=== PATIENT | male | born 1975 | race Caucasian/White ===

== ENCOUNTER 2021-08-21 18:27 | Emergency (ER) | payer SELFPAY ==
[2021-08-21 18:45] VITALS: BP 173/84; PULSE 74; RESP 16; TEMP 36.8; O2SAT 99; BMI 28.4
--- NOTE | 2021-08-21 19:03 | W.ED.URI ---
HPI - URI/Sore Throat General: Chief Complaint: Upper Respiratory Infection Stated Complaint: Throat Hurts Time Seen by Provider: 08/21/21 18:55 Source: patient Mode of arrival: ambulatory Limitations: no limitations History of Present Illness: HPI Narrative: Patient is a 46-year-old male presents to ED today with complaint of a sore throat and a productive cough over the past 2 to 3 days. Patient is primarily Telugu-speaking and has a friend/customer quality specialist on his phone that most of the history was elicited from. He is not complaining of much sinus pain/pressure, nasal congestion, rhinorrhea. No fevers. He does not complain of chest pain or shortness of breath. He is vaccinated for COVID. No abdominal pain, nausea, vomiting, diarrhea. No headache. No rash. No sick contacts. Vital signs are stable upon arrival. MD elicited complaint: cough and other (sore throat) Able to tolerate fluids by mouth: Yes Exacerbating factors: nothing Relieving factors: nothing Associated symptoms: Deny abdominal pain, chills, chest pain, diarrhea, ear or mastoid pain, fever(s), headache(s), nasal congestion, nausea, sinus pain or vomiting Treatments prior to arrival: none Review of Systems Const: Denies: fever(s), chills, body aches, change in appetite, change in weight, fatigue, malaise, night sweats or diaphoresis Eyes: Denies: change in vision, blurry vision, photophobia, eye discomfort, eye discharge or eye redness ENMT: Reports: throat pain; Denies: uvular edema, enlarged tonsils, swelling of lips/tongue, oral sores, ear or mastoid pain, nasal discharge, nasal congestion, post nasal drip or sinus pain Card: Denies: chest pain, palpitations, irregular heart rhythm, edema, swelling of feet/ankles, lightheadedness, syncope or pre-syncope Resp: Reports: productive cough, change in phlegm color and chest congestion; Denies: dyspnea, wheezing, stridor, pain on inspiration or hemoptysis GI: Denies: abdominal pain, nausea, vomiting or diarrhea Musc: Denies: neck pain, back pain, extremity pain or joint pain Skin/Breast: Denies: rash Neuro: Denies: headache(s), numbness in extremities, weakness in extremities or sensory changes PFSH ED PFSH: Social History Smoking and tobacco status: never smoked Physical Exam Const: COMMON NORMALS: no acute distress, average body habitus, patient oriented x3, healthy appearing, alert and well nourished EXAM LIMITATIONS: language barrier (has sleeve fixer/friend on his phone) GENERAL APPEARANCE: cooperative HENMT: COMMON NORMALS: normocephalic, atraumatic, hearing grossly normal bilaterally, external ears normal, EAC's normal, TM's normal bilaterally, Normal external nose present, Normal nasal mucous membranes and turbinates present, moist oral mucous membranes, oropharynx normal, dentition normal and gingiva normal HEAD & SCALP: normal to inspection, normocephalic and atraumatic FACE & SINUS: normal facial exam and sinuses nontender NOSE: Normal external nose present and Normal nasal mucous membranes and turbinates present EXTERNAL EAR: Yes external ears normal EXTERNAL AUDITORY CANAL: EAC's normal TYMPANIC MEMBRANE: TM's normal bilaterally MOUTH: Normal oral and palatal mucosa present, lip normal and tongue normal THROAT: posterior oropharynx normal, tonsils normal and uvula midline; no uvular edema Eye: GENERAL EYE: appearance normal, both eyes and all related structures Neck/C-Spine: COMMON NORMALS: full ROM, no lymphadenopathy and no meningeal signs GENERAL: Yes normal visual inspection Resp: COMMON NORMALS: normal respiratory effort and clear to auscultation bilaterally AUSCULTATION: clear to auscultation bilaterally Cardio: COMMON NORMALS: regular rate and regular rhythm RATE: regular rate RHYTHM: regular rhythm Extremity: COMMON NORMALS: no clubbing, cyanosis or edema, no calf tenderness and no pedal edema Neuro: COMMON NORMALS: patient oriented x3 SENSORIUM/ORIENTATION: Yes alert MENINGEAL SIGNS: Yes no meningeal signs Skin: COMMON NORMALS: no rashes or lesions noted GENERAL SKIN EXAM: no rashes or lesions noted Course Vital Signs: Vital signs: Vital Signs Temperature 98.2 F 08/21/21 19:43 Pulse Rate 88 08/21/21 19:43 Respiratory Rate 18 08/21/21 19:43 Blood Pressure 138/78 08/21/21 19:43 Pulse Oximetry 98 08/21/21 19:43 MDM - URI/Sore Throat Imaging Data^: CXR: Radiologist's impression: [address] [address] XRay Report Signed Patient: Henrry Doshi Unit #: [id number] : 1975 Age/Sex: 46 / M ADM Date: 08/21/21 Loc: ER Room/Bed: Attending Dr: Ordering Provider/Ordering MD: Libertad Villegas Date of Service: 08/21/21 Procedure(s): XR chest 1V portable [id number] Accession Number(s): [id number] Report Number: [id number] PROCEDURE INFORMATION: Exam: XR Chest Exam date and time: 08/21/2021 7:02 PM Age: 46 years old Clinical indication: Cough; Additional info: Cough, congestion TECHNIQUE: Imaging protocol: XR of the chest. Views: 1 view. Total images: 1 COMPARISON: No relevant prior studies available. FINDINGS: Lungs: No visible active interstitial or alveolar airspace disease. Pleural spaces: No pleural effusion. No pneumothorax. Heart/Mediastinum: Cardiac structures and configuration appear within normal limits. Bones/joints: Unremarkable. Other findings: Lordotic view. XR/XR chest 1V portable [id number] IMPRESSION: Nonacute. Dictated By: Michoacano Dumas Signed By: Michoacano Dumas Signed Date/Time: 08/21/211941 DD/ 01 Discharge Plan Discharge Patient Disposition: Home Clinical Impression: Bronchitis Condition: Stable Prescriptions: New doxycycline monohydrate 100 mg capsule 100 mg PO Q12H 7 Days Qty: 14 RF: 0 Discharge Orders: Discharge ED (Routine); Ordered 08/21/21 Ordered By: Libertad Villegas Coding Level of Care Code ED Kick Press Operator for Chg Fwd Exam Comprehensive
[2021-08-21 19:43] VITALS: BP 138/78; PULSE 88; RESP 18; TEMP 36.8; O2SAT 98
[2021-08-21 21:21] LABS: Adenovirus Not Detected (NOT DETECT); Chlamydia Pneumoniae Not Detected (NOT DETECT); Coronavirus 229E,HKU1,NL63,OC4 Not Detected (NOT DETECT); Human Metapneumovirus Not Detected (NOT DETECT); Human Rhinovirus/Enterovirus Not Detected (NOT DETECT); Influenza A Not Detected (NOT DETECT); Influenza A H1 Not Detected (NOT DETECT); Influenza A H1-2009 Not Detected (NOT DETECT); Influenza A H3 Not Detected (NOT DETECT); Influenza B Not Detected (NOT DETECT); Mycoplasma Pneumoniae Not Detected (NOT DETECT); Parainfluenza Virus Type 1 Not Detected (NOT DETECT); Parainfluenza Virus Type 2 Not Detected (NOT DETECT); Parainfluenza Virus Type 3 Not Detected (NOT DETECT); Parainfluenza Virus Type 4 Not Detected (NOT DETECT); Respiratory Syncytial Virus A Not Detected (NOT DETECT); Respiratory Syncytial Virus B Not Detected (NOT DETECT); SARS-COV-2 Detected (NOT DETECT)
== END 2021-08-21 19:44 | disposition home or self-care (01) ==
PROVIDERS: Emergency Provider Physician Assistant
DX: J40 Bronchitis, not specified as acute or chronic (principal); U07.1 COVID-19
CPT/HCPCS: 71045; 87635; 99282